=== PATIENT | female | born 1970 | race African-American/Black ===

== ENCOUNTER → 2017-02-14 | Day surgery (SDC) | payer BC ==
[~2017-02-14] VITALS: Ht 172.7 cm; Wt 87.7 kg
[~2017-02-14] MED LIST: *ONDANSETRON 4 MG VIAL PERIprocedural Use ONLY ONE; ACETAMINOPHEN 1000 MG/100 ML VIAL IV ONE; ATEN50TA PO; BUPIVACAINE HCL PF 0.5% 30 ML VIAL ONE; BUPIVACAINE/EPINEPHRINE 0.25% 50 ML VIAL ONE; CHLORHEXIDINE GLUCONATE 2 % 1 PACK (2 CLOTHS) TOPICAL PRN; DAILTAB38 PO; DEXAMETHASONE SOD PHOS 4 MG/ML VIAL ONE; DO NOT ADM ANY ANTICOAGULANT DRUGS PRN; FAMOTIDINE 20 MG/2 ML VIAL ONE; GLUC1TAB38 PO; INSULIN HUMAN REGULAR 1,000 UNITS/10 ML VIAL SQ PRN; IRON27TA PO; KETOROLAC TROMETHAMINE 60 MG/2 ML (IM) VIAL IM ONE; LACTATED RINGER'S 1000 ML INJ 2,000 ML IV ONE; LACTATED RINGER'S 1000 ML IV PRN; METHYLENE BLUE 10 MG/ML VIAL IV PUSH ONE; METOPROLOL TARTRATE 25 MG TAB PO PRN; MIDAZOLAM HCL 2 MG/2 ML VIAL ONE; NEOSTIGMINE 3 MG/3 ML SYR IV ONE; ONDANSETRON HCL 4 MG/2 ML VIAL IV PUSH ONE; PHENYLEPH/NS 1000 MCG/10 ML SYR IV ONE; POVIDONE IODINE 5% (ANTISEPSIS KIT) 4 APPLICATIONS EACH NARE PRN; PROPOFOL 200 MG/20 ML AMP IV ONE; SODIUM CHLORID 0.9% 500 ML IV PRN; TRIA37.53 PO; VASOPRESSIN 20 UNITS/ML VIAL (IVTITR) ONE; ePHEDrine/NS 25 MG/5 ML SYR IV ONE; fentaNYL CITRATE 250 MCG/5 ML AMP ONE; oxyCODONE/ACETAMINOPHEN 5 MG/325 MG TAB ONE; oxyCODONE/ACETAMINOPHEN 5 MG/325 MG TAB PO PRN
[2017-02-14 05:58] VITALS: BP 149/99; PULSE 63; RESP 18; TEMP 98.1; O2SAT 98
[2017-02-14] MEDS: ceFAZolin 2 GM PREMIX 50 ML IV SCH ×2 (06:17→10:19)
--- NOTE | 2017-02-14 07:31 | PD.OP ---
Operative Report Date of Surgery: Feb 14, 2017 Preoperative Diagnosis: (1) Excessive and frequent menstruation with regular cycle (2) Intramural leiomyoma of uterus (3) Pelvic and perineal pain Postoperative Diagnosis: (1) Excessive and frequent menstruation with regular cycle (2) Intramural leiomyoma of uterus (3) Pelvic and perineal pain Procedure: 1. [facility] 2. B salpingectomy 3. left cystectomy Anesthesia: General Surgeon: Ayse Dupont Food Counter Attendant(s): OR Staff Operation and Findings: IVF: 2 liters of LR + IV antibiotics given prior to surgery + left cystectomy EBL: 150 ml UO: 350 ml Findings: 1. enlarge uterus with multiple large fibroids 2. left ovarian cysts Specimens: uterus, tubes, left ovarian cyst Complications: none Condition: stable Disposition: PACU Description of the procedure: I discussed the risks, benefits and alternatives of the procedure with the patient, her questions were answered, informed consent was signed, the patient verbalized understanding. She was then taken to the operating room with her IV running, was placed in the supine position and was given general anesthesia without difficulties or complications. She was then placed in the dorsal lithotomy position and was prepped and draped in the usual sterile fashion. Attention was first turned to the patient's pelvic area. A bivalved speculum was introduced inside the patient's vagina. The anterior aspect of the cervix was grasped with a single tooth tenaculum for manipulation. The cervix was carefully dilated. The endocervix was electrocauterized with the Bovie. A uterine manipulator was carefully introduced inside the uterus. A Hernandez was introduced inside the bladder. The genital area was then covered with a sterile towel. The surgeon changed gloves and attention was then turned to the patient's abdomen. A vertical umbilical incision was made with the scalpel. A 5 mm trocar was introduced inside the patient's abdomen under direct visualization. A pneumo -peritoneum was created with CO2 gas. Two 5 mm trocar and one 10 mm trocar were introduced inside the patient's abdomen under direct visualization in the lower right, mid and left abdomen. A survey of the patient's abdomen revealed normal anatomy. A survey of the patient's pelvis revealed a very large uterus with multiple fibroids. The ureters were identified and found to be away from the surgical sites. Methylene blue was given. The round ligaments were grasped, electrocauterized and transected with the Harmonic scalpel. Excellent hemostasis was noted. The utero-ovarian ligaments were serially electrocauterized and transected with the Harmonic instrument. Good hemostasis was noted. The fallopian tubes were serially electrocauterized and from the ovaries. Good hemostasis was noted. The large left ovarian cyst was carefully removed. Good hemostasis was noted. The tissues along the uterus on both sides were serially grasped, electrocauterized and transected with the Thunderbeat scalpel. The ureters were noted to be away from the surgical site. The uterine vessels were skeletonized, electrocauterized and transected with the Thunderbeat scalpel. Good hemostasis was noted. Next, the bladder flap was created and the bladder was dissected off the lower uterine segment. The peritoneum in the posterior aspect of the uterus was also cut and dissected off the lower uterine segment. Excellent hemostasis was noted. The uterine manipulator was removed. The cervix was transected at the cervico-uterine junction with Rebecca loop. Good hemostasis was noted. The morcellator was placed inside the patient's abdomen under direct visualization. The uterus and fallopian tubes were carefully dissected, removed and sent to pathology. The right ovarian cyst was also removed from the pelvis and sent to pathology. Care was taken to remove all of the small pieces of tissue left in the abdomen and pelvis. Copious irrigation was done. All surgical sites were noted to be hemostatic. The endocervix was electrocauterized. Interseed was placed over the surgical sites. All instruments were removed from patient's abdomen. The trocars were removed under direct visualization and the sites were noted to be hemostatic. The CO2 gas was carefully expressed out of the patient's abdomen. The fascia under the 10 mm incisions was reapproximated with figure eight stitch of 0-Vicryl. The subcutaneous tissues were injected with 0.5 % Marcaine. The skin incisions were reapproximated with subcutaneous stitches using 4-0 Vicryl. Mastisol and steri strips were placed over the incisions. Good hemostasis was noted at the vaginal introitus. The patient tolerated the procedure well. She was successfully extubated and transferred to PACU in stable condition. NOTE: I discussed surgical procedures and surgical findings with the patient's and family. Their questions were answered. They verbalized understanding and agreement to the procedures done. Ayse Dupont MD Feb 14, 2017 07:31
[2017-02-14 12:50] VITALS: BP 132/75; PULSE 81; RESP 18; TEMP 97.9; O2SAT 100
== END | disposition home or self-care (01) ==
LOC: HSDC 05:18
PROVIDERS: ATTEND Obstetrics & Gynecology
DX: D25.1 Intramural leiomyoma of uterus (principal); N80.1 Endometriosis of ovary; N70.11 Chronic salpingitis; N92.1 Excessive and frequent menstruation with irregular cycle; R10.2 Pelvic and perineal pain; I10 Essential (primary) hypertension; Z79.899 Other long term (current) drug therapy
CPT/HCPCS: 00840; 58544; 86850; 86900; 86901; 88305; 88307; C1765; J0131; J0690; J1100; J1885; J2250; J2370; J2405; J2710; J3010; J7120; 88304